=== PATIENT | female | born 1970 | race Caucasian/White ===

== ENCOUNTER 2021-06-26 19:27 | Emergency (ER) | payer OTHER ==
[2021-06-26 20:03] LABS: HEMOGLOBIN 14.1 gm/dl (12.3-15.3); RED BLOOD COUNT 4.99 M/UL (4.00-5.10); WHITE BLOOD COUNT 7.5 K/UL (4.5-11.0)
[2021-06-26 20:39] LABS: BUN/CREATININE RATIO 10 (0-10)
[2021-06-27] MEDS ORDERED: ZESTRIL10 MG PO (01:48)
== END 2021-06-27 01:55 | disposition home or self-care (01) ==
LOC: ER1 19:27
PROVIDERS: Physician Assistant
DX: R07.9 Chest pain, unspecified (principal); I10 Essential (primary) hypertension
CPT/HCPCS: 71045; 80053; 82550; 82553; 83874; 84439; 84443; 84484; 85025; 93005; 99285